=== PATIENT | male | born 1950 | race Caucasian/White ===

== ENCOUNTER 2020-12-12 12:44 | Observation (INO) ==
[2020-12-12] MEDS ORDERED: methylPREDNISolone 125 MG/2 ML VIAL IVP ONE (13:21)
[2020-12-12] MEDS ORDERED: Ipratropium/Albuterol Neb 3 ML IH ONE (13:21)
[2020-12-12] MEDS ORDERED: Albuterol 2.5 MG/3 ML NEBULIZER IH ONE (13:21)
[2020-12-12 13:31] LABS: Hematocrit 20.9 % (37.5-50.1); Hemoglobin 6.8 g/dL (12.9-16.9); Mean Corpuscular HGB Conc 32.5 g/dL (31.6-35.5); Mean Corpuscular Hemoglobin 37.2 pg (28.0-33.3); Mean Corpuscular Volume 114.2 fL (83.0-100.0); Mean Platelet Volume 10.7 fL (9.4-12.4); Platelet Count 147 K/mcL (140-400); Red Blood Count 1.83 M/mcL (4.19-5.50); Red Cell Distribution Width 16.4 % (11.5-14.5); White Blood Count 5.3 K/mcL (4.3-11.1)
[2020-12-12 13:52] LABS: BUN/Creatinine Ratio 40 (6-26); Blood Urea Nitrogen 37 mg/dL (8-23); Calcium 9.5 mg/dL (8.6-10.3); Carbon Dioxide 22 mEq/L (23-29); Chloride 105 mEq/L (98-107); Glucose 167 mg/dL (70-105); Osmolality,Calculated 296 (280-300); Potassium 4.1 mEq/L (3.5-5.1); Sodium 137 mEq/L (136-145); eGFR For African Americans > 60 (> 60); eGFR For Non-African Americans > 60 (> 60)
[2020-12-12 13:53] LABS: Troponin I < 0.03 ng/mL (< 0.04)
[2020-12-12] MEDS ORDERED: Isovue-370 500 ML BOTTLE IVP ONE (13:58)
[2020-12-12 14:03] LABS: Anisocytosis 1+ (Not Present); Lymphocytes # 0.2 K/mcL (0.6-4.6); Platelet Estimate Slight Decrease (Normal)
[2020-12-12 14:04] LABS: Poikilocytosis 1+ (Not Present)
[2020-12-12] MEDS ORDERED: 0.9 % Sodium Chloride 500 ML ONE (15:08)
[2020-12-12] MEDS ORDERED: Naloxone 0.4 MG/ML INJ IVP PRN (15:43)
[2020-12-12] MEDS ORDERED: 0.9 % Sodium Chloride 250 ML IVC SCH (15:45)
[2020-12-12] MEDS ORDERED: Azithromycin 250 MG TABLET PO SCH (15:45)
[2020-12-12] MEDS ORDERED: *HR* Dextrose 50 % in Water (Vial) 50 ML VIAL IVP PRN (15:46)
[2020-12-12] MEDS ORDERED: Dextrose Gel 15 GM/37.5 ML TUBE PO PRN ×2 (15:46)
[2020-12-12] MEDS ORDERED: D5% in Water 1,000 ML IVC PRN (15:46)
[2020-12-12] MEDS: Ipratropium/Albuterol Neb 3 ML IH SCH ×3 (16:09→23:21)
[2020-12-12] MEDS: Insulin LISPRO 300 UNITS/3 ML VIAL SUBQ SCH (17:17)
[2020-12-12] MEDS: MethylPREDNISolone 40 MG/ML VIAL IVP SCH (18:47)
[2020-12-12] MEDS: Budesonide/Formoterol 160/4.5 1 PUFF INH IH SCH (19:36)
[2020-12-13 02:25] LABS: Immature Reticulocyte % 16.3 % (11.0-38.0); Retculocyte # 0.03 M/mcL (0.05-0.10); Reticulocyte % 1.6 % (1.6-2.8)
[2020-12-13 02:45] LABS: BUN/Creatinine Ratio 39 (6-26); Blood Urea Nitrogen 37 mg/dL (8-23); Calcium 9.2 mg/dL (8.6-10.3); Carbon Dioxide 22 mEq/L (23-29); Chloride 106 mEq/L (98-107); Glucose 327 mg/dL (70-105); Osmolality,Calculated 305 (280-300); Potassium 4.3 mEq/L (3.5-5.1); Sodium 137 mEq/L (136-145); eGFR For African Americans > 60 (> 60); eGFR For Non-African Americans > 60 (> 60)
[2020-12-13] MEDS: Ipratropium/Albuterol Neb 3 ML IH SCH ×3 (03:24→11:33)
[2020-12-13] MEDS: MethylPREDNISolone 40 MG/ML VIAL IVP SCH (05:14)
[2020-12-13] MEDS: Budesonide/Formoterol 160/4.5 1 PUFF INH IH SCH (07:21)
[2020-12-13] MEDS: Insulin LISPRO 300 UNITS/3 ML VIAL SUBQ SCH ×2 (07:23→11:55)
[2020-12-13 08:43] LABS: BUN/Creatinine Ratio 36 (6-26); Blood Urea Nitrogen 35 mg/dL (8-23); Calcium 9.3 mg/dL (8.6-10.3); Carbon Dioxide 20 mEq/L (23-29); Chloride 107 mEq/L (98-107); Glucose 244 mg/dL (70-105); Osmolality,Calculated 300 (280-300); Potassium 3.7 mEq/L (3.5-5.1); Sodium 137 mEq/L (136-145); eGFR For African Americans > 60 (> 60); eGFR For Non-African Americans > 60 (> 60)
[2020-12-13] MEDS ORDERED: *HR* Rivaroxaban 10 MG TABLET PO SCH (09:00)
[2020-12-13] MEDS ORDERED: Folic Acid 1 MG TABLET PO SCH (09:00)
[2020-12-13] MEDS ORDERED: Pantoprazole 40 MG VIAL IVP SCH (09:00)
[2020-12-13] MEDS ORDERED: Furosemide 20 MG TABLET PO SCH (09:00)
[2020-12-13 10:16] LABS: Hematocrit 24.2 % (37.5-50.1); Hemoglobin 8.2 g/dL (12.9-16.9); Mean Corpuscular HGB Conc 33.9 g/dL (31.6-35.5); Mean Corpuscular Hemoglobin 35.2 pg (28.0-33.3); Mean Corpuscular Volume 103.9 fL (83.0-100.0); Mean Platelet Volume 10.8 fL (9.4-12.4); Platelet Count 120 K/mcL (140-400); Red Blood Count 2.33 M/mcL (4.19-5.50); White Blood Count 3.5 K/mcL (4.3-11.1)
[2020-12-13 10:43] VITALS: BP 117/65
[2020-12-14] MEDS ORDERED: *HR* Rivaroxaban 10 MG TABLET PO SCH (17:00)
== END 2020-12-13 13:10 | disposition home or self-care (01) ==
LOC: EMEROOARM 12:44 → 2ANU 12:44 → SUATTDRO 15:48 → 2ANU 16:46
PROVIDERS: ADMIT Internal Medicine; ATTEND Family Medicine

== ENCOUNTER 2021-01-03 15:30 | Observation (INO) ==
[2021-01-03] MEDS ORDERED: Isovue-370 500 ML BOTTLE IVP ONE (15:59)
[2021-01-03] MEDS ORDERED: 0.9 % Sodium Chloride 1,000 ML IVC ONE (15:59)
[2021-01-03 17:12] LABS: Hematocrit 22.1 % (37.5-50.1); Hemoglobin 7.3 g/dL (12.9-16.9); Immature Granulocytes % 1.1 % (0-4); Lymphocytes # 0.2 K/mcL (0.6-4.6); Mean Corpuscular Hemoglobin 36.1 pg (28.0-33.3); Mean Corpuscular Volume 109.4 fL (83.0-100.0); Mean Platelet Volume 10.3 fL (9.4-12.4); Monocytes # 0.1 K/mcL (0.0-1.3); Monocytes % 4.7 %; Neutrophils # 2.4 K/mcL (1.6-8.9); Platelet Count 105 K/mcL (140-400); Red Blood Count 2.02 M/mcL (4.19-5.50); Red Cell Distribution Width 21.2 % (11.5-14.5); Segmented Neutrophils % 86.2 %; White Blood Count 2.8 K/mcL (4.3-11.1)
[2021-01-03 17:17] LABS: INR 1.3; Prothrombin Time 15.1 Seconds (9.4-12.1)
[2021-01-03 17:20] LABS: Activated Partial Thrombo Time 23.9 Seconds (26.0-36.0)
[2021-01-03 17:30] LABS: Troponin I < 0.03 ng/mL (< 0.04)
[2021-01-03 17:43] LABS: Thyroid Stimulating Hormone 1.007 mcIU/mL (0.340-5.600)
[2021-01-03 18:25] LABS: BUN/Creatinine Ratio 41 (6-26); Blood Urea Nitrogen 34 mg/dL (8-23); Calcium 9.3 mg/dL (8.6-10.3); Carbon Dioxide 23 mEq/L (23-29); Chloride 106 mEq/L (98-107); Glucose 183 mg/dL (70-105); Osmolality,Calculated 300 (280-300); Potassium 4.1 mEq/L (3.5-5.1); Sodium 139 mEq/L (136-145); eGFR For African Americans > 60 (> 60); eGFR For Non-African Americans > 60 (> 60)
[2021-01-03] MEDS ORDERED: 0.9 % Sodium Chloride 250 ML ONE (21:52)
[2021-01-04] MEDS ORDERED: Melatonin 3 MG TABLET PO PRN (00:41)
[2021-01-04] MEDS ORDERED: Naloxone 0.4 MG/ML INJ IVP PRN (00:41)
[2021-01-04] MEDS ORDERED: Ondansetron 4 MG/2 ML VIAL IVP PRN (00:41)
[2021-01-04 04:31] LABS: Hematocrit 25.1 % (37.5-50.1); Hemoglobin 8.5 g/dL (12.9-16.9); Immature Granulocytes % 1.5 % (0-4); Mean Corpuscular HGB Conc 33.9 g/dL (31.6-35.5); Mean Corpuscular Hemoglobin 35.6 pg (28.0-33.3); Mean Platelet Volume 10.9 fL (9.4-12.4); Monocytes # 0.4 K/mcL (0.0-1.3); Monocytes % 12.2 %; Neutrophils # 2.3 K/mcL (1.6-8.9); Nucleated Red Blood Cells 0.6 /100 WBC (0); Platelet Count 119 K/mcL (140-400); Red Blood Count 2.39 M/mcL (4.19-5.50); Red Cell Distribution Width 22.1 % (11.5-14.5); Segmented Neutrophils % 67.3 %; White Blood Count 3.4 K/mcL (4.3-11.1)
[2021-01-04 04:34] LABS: Lymphocytes # 0.7 K/mcL (0.6-4.6)
[2021-01-04 04:54] LABS: Alanine Aminotransferase 11 Units/L (7-52); Albumin 3.6 g/dL (3.5-5.7); Albumin/Globulin Ratio 1.6 (1.1-2.2); Alkaline Phosphatase 64 Units/L (34-104); Aspartate Amino Transferase 11 Units/L (13-39); BUN/Creatinine Ratio 32 (6-26); Bilirubin,Total 1.8 mg/dL (0.3-1.0); Blood Urea Nitrogen 29 mg/dL (8-23); Calcium 9.2 mg/dL (8.6-10.3); Carbon Dioxide 24 mEq/L (23-29); Chloride 108 mEq/L (98-107); Globulin 2.3 g/dL (2.4-3.5); Glucose 133 mg/dL (70-105); Magnesium 2.2 mg/dL (1.6-2.6); Osmolality,Calculated 296 (280-300); Phosphorous 3.3 mg/dL (2.7-4.5); Potassium 3.8 mEq/L (3.5-5.1); Sodium 139 mEq/L (136-145); Total Protein 5.9 g/dL (6.4-8.9); eGFR For African Americans > 60 (> 60); eGFR For Non-African Americans > 60 (> 60)
[2021-01-04 05:05] LABS: Platelet Estimate Slight Decrease (Normal)
[2021-01-04] MEDS ORDERED: Dextrose Gel 15 GM/37.5 ML TUBE PO PRN ×2 (07:56)
[2021-01-04] MEDS ORDERED: *HR* Dextrose 50 % in Water (Vial) 50 ML VIAL IVP PRN (07:56)
[2021-01-04] MEDS ORDERED: D5% in Water 1,000 ML IVC PRN (07:56)
[2021-01-04] MEDS ORDERED: Nitroglycerin 0.4 MG TAB.SUBL SL PRN (07:57)
[2021-01-04] MEDS: Ipratropium/Albuterol Neb 3 ML IH SCH ×5 (09:34→23:05)
[2021-01-04] MEDS: Aspirin Enteric Coated 81 MG Tablet PO SCH (10:17)
[2021-01-04] MEDS: predniSONE 20 MG TABLET PO SCH (10:18)
[2021-01-04] MEDS: Metoprolol XL (24 HR) Succ 25 MG TAB.ER.24H PO SCH (10:18)
[2021-01-04] MEDS: levoFLOXacin 750 MG/150 ML 750 MG/150 ML BAG IVPB SCH (10:19)
[2021-01-04] MEDS: Insulin LISPRO 300 UNITS/3 ML VIAL SUBQ SCH ×2 (11:55→17:25)
[2021-01-04] MEDS: Budesonide/Formoterol 160/4.5 1 PUFF INH IH SCH (19:50)
[2021-01-04] MEDS ORDERED: Insulin DETEMIR 100 UNIT/ML X5UNITS SUBQ SCH (21:00)
[2021-01-05 02:01] LABS: Hematocrit 22.9 % (37.5-50.1); Hemoglobin 7.9 g/dL (12.9-16.9)
[2021-01-05] MEDS: Ipratropium/Albuterol Neb 3 ML IH SCH ×6 (03:20→23:13)
[2021-01-05] MEDS: Insulin LISPRO 300 UNITS/3 ML VIAL SUBQ SCH ×3 (07:13→16:39)
[2021-01-05] MEDS: Budesonide/Formoterol 160/4.5 1 PUFF INH IH SCH ×2 (07:15→19:33)
[2021-01-05] MEDS: levoFLOXacin 750 MG/150 ML 750 MG/150 ML BAG IVPB SCH (08:01)
[2021-01-05] MEDS: predniSONE 20 MG TABLET PO SCH (08:01)
[2021-01-05] MEDS: Metoprolol XL (24 HR) Succ 25 MG TAB.ER.24H PO SCH ×2 (08:02→20:56)
[2021-01-05] MEDS: Cholecalciferol (D-3) 1,000 UNIT (25MCG) TABLET PO SCH (08:02)
[2021-01-05] MEDS: Aspirin Enteric Coated 81 MG Tablet PO SCH (08:02)
[2021-01-05] MEDS: Cyanocobalamin (B-12) 1,000 MCG TABLET PO SCH (08:02)
[2021-01-05] MEDS: *HR* Heparin 5,000 UNIT/ML VIAL SQ SCH (17:43)
[2021-01-05] MEDS ORDERED: Insulin DETEMIR 100 UNIT/ML X5UNITS SUBQ SCH (21:00)
[2021-01-06] MEDS: Ipratropium/Albuterol Neb 3 ML IH SCH ×2 (03:29→07:27)
[2021-01-06 03:34] LABS: Hematocrit 25.1 % (37.5-50.1); Hemoglobin 8.3 g/dL (12.9-16.9); Lymphocytes # 0.4 K/mcL (0.6-4.6); Lymphocytes % 14.6 %; Mean Corpuscular HGB Conc 33.1 g/dL (31.6-35.5); Mean Corpuscular Hemoglobin 34.9 pg (28.0-33.3); Mean Corpuscular Volume 105.5 fL (83.0-100.0); Mean Platelet Volume 10.8 fL (9.4-12.4); Monocytes # 0.3 K/mcL (0.0-1.3); Monocytes % 13.4 %; Neutrophils # 1.7 K/mcL (1.6-8.9); Nucleated Red Blood Cells 0.8 /100 WBC (0); Platelet Count 120 K/mcL (140-400); Red Blood Count 2.38 M/mcL (4.19-5.50); Red Cell Distribution Width 21.5 % (11.5-14.5); White Blood Count 2.5 K/mcL (4.3-11.1)
[2021-01-06 03:56] LABS: BUN/Creatinine Ratio 26 (6-26); Blood Urea Nitrogen 25 mg/dL (8-23); Calcium 9.3 mg/dL (8.6-10.3); Carbon Dioxide 23 mEq/L (23-29); Chloride 106 mEq/L (98-107); Glucose 172 mg/dL (70-105); Osmolality,Calculated 292 (280-300); Phosphorous 2.8 mg/dL (2.7-4.5); Potassium 4.1 mEq/L (3.5-5.1); Sodium 137 mEq/L (136-145); eGFR For African Americans > 60 (> 60); eGFR For Non-African Americans > 60 (> 60)
[2021-01-06] MEDS: *HR* Heparin 5,000 UNIT/ML VIAL SQ SCH (05:31)
[2021-01-06] MEDS: Budesonide/Formoterol 160/4.5 1 PUFF INH IH SCH (07:27)
[2021-01-06 07:50] VITALS: BP 125/74
[2021-01-06] MEDS: Insulin LISPRO 300 UNITS/3 ML VIAL SUBQ SCH (07:52)
[2021-01-06] MEDS: Cholecalciferol (D-3) 1,000 UNIT (25MCG) TABLET PO SCH (07:52)
[2021-01-06] MEDS: Metoprolol XL (24 HR) Succ 25 MG TAB.ER.24H PO SCH (07:53)
[2021-01-06] MEDS: Aspirin Enteric Coated 81 MG Tablet PO SCH (07:54)
[2021-01-06] MEDS: Cyanocobalamin (B-12) 1,000 MCG TABLET PO SCH (07:54)
[2021-01-06] MEDS ORDERED: levoFLOXacin 750 MG TABLET PO SCH (09:00)
[2021-01-06] MEDS ORDERED: predniSONE 20 MG TABLET PO SCH (09:00)
[2021-01-06] MEDS ORDERED: lisinopriL 5 MG TABLET PO SCH (09:00)
== END 2021-01-06 10:44 | disposition left against medical advice (07) ==
LOC: EMEROOARM 15:30 → 2NENU 15:30 → SUATTDRO 20:42 → 2NENU 22:30
PROVIDERS: ADMIT Internal Medicine; ATTEND Internal Medicine

== ENCOUNTER 2021-01-30 08:43 | Observation (INO) ==
[2021-01-30] MEDS ORDERED: Nitroglycerin 0.4 MG TAB.SUBL SL PRN (08:51)
[2021-01-30] MEDS ORDERED: Aspirin 81 MG TAB.CHEW PO ONE (08:51)
[2021-01-30] MEDS ORDERED: 0.9 % Sodium Chloride 500 ML IVC STA (09:04)
[2021-01-30] MEDS ORDERED: Morphine Sulfate 2 MG/ML SYRINGE IVP STA (09:04)
[2021-01-30 09:08] LABS: Hematocrit 28.4 % (37.5-50.1); Hemoglobin 9.2 g/dL (12.9-16.9); Immature Platelets 5.8 % (1.1-6.1); Mean Corpuscular HGB Conc 32.4 g/dL (31.6-35.5); Mean Corpuscular Hemoglobin 36.8 pg (28.0-33.3); Mean Corpuscular Volume 113.6 fL (83.0-100.0); Mean Platelet Volume 10.3 fL (9.4-12.4); Monocytes # 0.3 K/mcL (0.0-1.3); Neutrophils # 2.2 K/mcL (1.6-8.9); Platelet Count 111 K/mcL (140-400); Red Cell Distribution Width 21.7 % (11.5-14.5); White Blood Count 3.2 K/mcL (4.3-11.1)
[2021-01-30 09:28] LABS: BUN/Creatinine Ratio 33 (6-26); Blood Urea Nitrogen 34 mg/dL (8-23); Calcium 9.9 mg/dL (8.6-10.3); Carbon Dioxide 28 mEq/L (23-29); Chloride 105 mEq/L (98-107); Glucose 98 mg/dL (70-105); Osmolality,Calculated 300 (280-300); Sodium 141 mEq/L (136-145); Troponin I 0.03 ng/mL (< 0.04); eGFR For African Americans > 60 (> 60); eGFR For Non-African Americans > 60 (> 60)
[2021-01-30 09:46] LABS: Lymphocytes # 0.7 K/mcL (0.6-4.6); Platelet Estimate Decreased (Normal); Reactive Lymphocytes Present (Not Present)
[2021-01-30 09:49] LABS: Anisocytosis 2+ (Not Present)
[2021-01-30] MEDS ORDERED: Naloxone 0.4 MG/ML INJ IVP PRN (10:36)
[2021-01-30] MEDS ORDERED: *HR* Dextrose 50 % in Water (Vial) 50 ML VIAL IVP PRN (10:37)
[2021-01-30] MEDS ORDERED: D5% in Water 1,000 ML IVC PRN (10:37)
[2021-01-30] MEDS ORDERED: Dextrose Gel 15 GM/37.5 ML TUBE PO PRN ×2 (10:37)
[2021-01-30 10:42] LABS: Adenovirus Not Detected (Not Detect); Bordetella Pertussis Not Detected (Not Detect); Chlamydophila pneumoniae Not Detected (Not Detect); Coronavirus 229E Not Detected (Not Detect); Coronavirus HKU1 Not Detected (Not Detect); Coronavirus NL63 Not Detected (Not Detect); Coronavirus OC43 Not Detected (Not Detect); Human Metapneumovirus Not Detected (Not Detect); Human Rhinovirus/Enterovirus Not Detected (Not Detect); Influenza A Subtype 2009 H1 Not Detected (Not Detect); Influenza B Not Detected (Not Detect); Mycoplasma pneumoniae Not Detected (Not Detect); Parainfluenza Virus 1 Not Detected (Not Detect); Parainfluenza Virus 2 Not Detected (Not Detect); Parainfluenza Virus 3 Not Detected (Not Detect); Parainfluenza Virus 4 Not Detected (Not Detect); Respiratory Syncytial Virus Not Detected (Not Detect); SARS-CoV-2 Not Detected (Not Detect)
[2021-01-30] MEDS: Insulin LISPRO 300 UNITS/3 ML VIAL SUBQ SCH ×2 (12:34→17:40)
[2021-01-30] MEDS ORDERED: Perflutren Lipid Microsphere 1.3 ML in 0.9 % Sodium Chloride 8.7 ML IVP PRN (14:03)
[2021-01-30] MEDS ORDERED: Furosemide 20 MG/2 ML VIAL IVP ONE (14:52)
[2021-01-30] MEDS: *HR* Heparin 5,000 UNIT/ML VIAL SQ SCH (16:11)
[2021-01-30] MEDS ORDERED: Insulin LISPRO 300 UNITS/3 ML VIAL SUBQ SCH (21:00)
[2021-01-31] MEDS: *HR* Heparin 5,000 UNIT/ML VIAL SQ SCH ×2 (05:11→16:59)
[2021-01-31 05:37] LABS: Eosinophils % 0.3 %; Immature Granulocytes % 1.5 % (0-4); Mean Corpuscular HGB Conc 32.9 g/dL (31.6-35.5); Monocytes % 9.4 %; Red Cell Distribution Width 22.2 % (11.5-14.5)
[2021-01-31 05:38] LABS: Hematocrit 21.6 % (37.5-50.1); Hemoglobin 7.1 g/dL (12.9-16.9); Immature Platelets 4.2 % (1.1-6.1); Lymphocytes # 0.7 K/mcL (0.6-4.6); Lymphocytes % 21.6 %; Mean Corpuscular Volume 112.5 fL (83.0-100.0); Mean Platelet Volume 10.8 fL (9.4-12.4); Monocytes # 0.3 K/mcL (0.0-1.3); Neutrophils # 2.2 K/mcL (1.6-8.9); Red Blood Count 1.92 M/mcL (4.19-5.50); Segmented Neutrophils % 67.2 %; White Blood Count 3.3 K/mcL (4.3-11.1)
[2021-01-31 05:43] LABS: Platelet Count 98 K/mcL (140-400)
[2021-01-31 05:59] LABS: Chol/HDL Ratio 2.6 (0-4.9)
[2021-01-31 06:07] LABS: Anisocytosis 2+ (Not Present); Macrocytosis Present (Not Present); Platelet Estimate Decreased (Normal)
[2021-01-31] MEDS ORDERED: Regadenoson 0.4 MG/5 ML SYRINGE IVP ONE (06:27)
[2021-01-31 08:08] LABS: Estimated Average Glucose 126 mg/dl
[2021-01-31] MEDS: Insulin LISPRO 300 UNITS/3 ML VIAL SUBQ SCH ×3 (08:24→16:58)
[2021-01-31] MEDS ORDERED: Ipratropium/Albuterol Neb 3 ML IH PRN (08:36)
[2021-01-31] MEDS ORDERED: Furosemide 20 MG TABLET PO SCH (09:00)
[2021-01-31] MEDS ORDERED: Cyanocobalamin (B-12) 1,000 MCG TABLET PO SCH (09:00)
[2021-01-31] MEDS ORDERED: Metoprolol XL (24 HR) Succ 25 MG TAB.ER.24H PO SCH (09:00)
[2021-01-31] MEDS ORDERED: Aspirin Enteric Coated 81 MG Tablet PO SCH (09:00)
[2021-01-31 09:58] LABS: Hemoglobin 7.6 g/dL (12.9-16.9)
[2021-01-31 10:00] LABS: Hematocrit 22.9 % (37.5-50.1)
[2021-01-31] MEDS ORDERED: Tiotropium 10 INH DOSE IH SCH (10:00)
[2021-01-31] MEDS ORDERED: Budesonide/Formoterol 160/4.5 1 PUFF INH IH SCH (10:00)
[2021-01-31 10:19] LABS: % Iron Saturation 29 % (20-55); Iron 57 mcg/dL (65-175); Transferrin 140 mg/dL (203-362)
[2021-01-31 10:38] LABS: Ferritin 301 ng/mL (20-250)
[2021-01-31 10:43] LABS: Folate 18.1 ng/mL (3.0-16.0)
[2021-01-31] MEDS ORDERED: Tiotropium 10 INH DOSE IH ONE (10:54)
[2021-01-31 18:30] VITALS: BP 112/62
[2021-01-31 19:08] LABS: Hematocrit 24.2 % (37.5-50.1); Hemoglobin 8.1 g/dL (12.9-16.9)
== END 2021-01-31 19:36 | disposition home or self-care (01) ==
LOC: 3BNU 08:43 → EMEROOARM 08:43 → SUATTDRO 11:04 → 3BNU 11:54
PROVIDERS: ADMIT Internal Medicine; ATTEND Internal Medicine

== ENCOUNTER 2021-07-23 11:12 | Inpatient (IN) ==
[2021-07-23 12:36] LABS: Basophils % 0.3 %; Eosinophils % 0.3 %; Hemoglobin 6.9 g/dL (12.9-16.9); Immature Granulocytes % 1.5 % (0-4)
[2021-07-23 12:37] LABS: Hematocrit 21.5 % (37.5-50.1); Immature Platelets 9.4 % (1.1-6.1); Lymphocytes # 0.4 K/mcL (0.6-4.6); Mean Corpuscular HGB Conc 32.1 g/dL (31.6-35.5); Mean Corpuscular Hemoglobin 33.2 pg (28.0-33.3); Mean Corpuscular Volume 103.4 fL (83.0-100.0); Mean Platelet Volume 12.4 fL (9.4-12.4); Monocytes # 0.3 K/mcL (0.0-1.3); Monocytes % 9.8 %; Neutrophils # 2.6 K/mcL (1.6-8.9); Nucleated Red Blood Cells 0.6 /100 WBC (0); Red Blood Count 2.08 M/mcL (4.19-5.50); Red Cell Distribution Width 22.1 % (11.5-14.5); Segmented Neutrophils % 77.1 %; White Blood Count 3.4 K/mcL (4.3-11.1)
[2021-07-23 12:37] LABS: INR 1.2; Prothrombin Time 13.4 Seconds (9.4-12.1)
[2021-07-23 12:39] LABS: Activated Partial Thrombo Time 28.1 Seconds (26.0-36.0)
[2021-07-23 12:40] LABS: Platelet Count 63 K/mcL (140-400)
[2021-07-23 12:55] LABS: ABG Base Excess 3 mEq/L (-2 to 3); ABG HCO3 28 mEq/L (21-27); ABG Oxygen Saturation 99 % (95-98); ABG PCO2 44 mmHg (35-45); ABG PH 7.41 pH Units (7.32-7.45); ABG PO2 133 mmHg (85-104); ABG TCO2 29 mEq/L (20-26)
[2021-07-23 13:02] LABS: Alanine Aminotransferase 6 Units/L (7-52); Albumin 3.5 g/dL (3.5-5.7); Albumin/Globulin Ratio 1.3 (1.1-2.2); Alkaline Phosphatase 75 Units/L (34-104); Aspartate Amino Transferase 13 Units/L (13-39); BUN/Creatinine Ratio 32 (6-26); Bilirubin,Direct 0.5 mg/dL (0.0-0.2); Bilirubin,Indirect 1.2 mg/dL (0.0-1.0); Bilirubin,Total 1.7 mg/dL (0.3-1.0); Blood Urea Nitrogen 37 mg/dL (8-23); Calcium 9.1 mg/dL (8.6-10.3); Carbon Dioxide 27 mEq/L (23-29); Chloride 105 mEq/L (98-107); Globulin 2.7 g/dL (2.4-3.5); Glucose 107 mg/dL (70-105); Osmolality,Calculated 299 (280-300); Potassium 3.8 mEq/L (3.5-5.1); Sodium 140 mEq/L (136-145); Total Protein 6.2 g/dL (6.4-8.9); Troponin I 0.05 ng/mL (< 0.04); eGFR For African Americans > 60 (> 60); eGFR For Non-African Americans > 60 (> 60)
[2021-07-23 13:18] LABS: Influenza A PCR Negative (Negative); Influenza B PCR Negative (Negative); Resp. Syncytial Virus PCR Negative (Negative)
[2021-07-23 13:36] LABS: SARS-CoV-2 by PCR (In House) Negative (Negative)
[2021-07-23] MEDS ORDERED: Isovue-370 500 ML BOTTLE IVP ONE (14:10)
[2021-07-23] MEDS ORDERED: Amiodarone Premix 150 MG/100 ML BAG IVPB ONE (16:06)
[2021-07-23] MEDS ORDERED: Amiodarone Premix 360 MG/200 ML BAG IVC ONE (16:09)
[2021-07-23] MEDS ORDERED: Furosemide 60 MG in 0.9 % Sodium Chloride 50 ML IV ONE (16:17)
[2021-07-23] MEDS ORDERED: 0.9 % Sodium Chloride 250 ML IVC SCH (17:15)
[2021-07-23] MEDS: Furosemide 40 MG/4 ML VIAL IVP ONE ×2 (17:52→21:43)
[2021-07-23 19:24] LABS: Thyroid Stimulating Hormone 3.331 mcIU/mL (0.340-5.600)
[2021-07-23 19:32] LABS: Magnesium 2.1 mg/dL (1.6-2.6)
[2021-07-23] MEDS ORDERED: Amiodarone Premix 360 MG/200 ML BAG IVC SCH (22:09)
[2021-07-24 01:03] LABS: Basophils % 0.3 %; Hemoglobin 7.3 g/dL (12.9-16.9); Red Cell Distribution Width 21.2 % (11.5-14.5)
[2021-07-24 01:05] LABS: Hematocrit 22.9 % (37.5-50.1); Immature Granulocytes % 1.6 % (0-4); Immature Platelets 9.7 % (1.1-6.1); Lymphocytes # 0.4 K/mcL (0.6-4.6); Lymphocytes % 13.1 %; Mean Corpuscular HGB Conc 31.9 g/dL (31.6-35.5); Mean Corpuscular Hemoglobin 32.4 pg (28.0-33.3); Mean Corpuscular Volume 101.8 fL (83.0-100.0); Mean Platelet Volume 11.7 fL (9.4-12.4); Monocytes # 0.3 K/mcL (0.0-1.3); Monocytes % 9.7 %; Neutrophils # 2.4 K/mcL (1.6-8.9); Red Blood Count 2.25 M/mcL (4.19-5.50); Segmented Neutrophils % 75.3 %; White Blood Count 3.2 K/mcL (4.3-11.1)
[2021-07-24] MEDS ORDERED: 0.9 % Sodium Chloride 250 ML IVC ONE (01:10)
[2021-07-24 01:12] LABS: INR 1.3; Prothrombin Time 14.5 Seconds (9.4-12.1)
[2021-07-24 01:14] LABS: Platelet Count 62 K/mcL (140-400)
[2021-07-24 01:17] LABS: Alanine Aminotransferase 6 Units/L (7-52); Albumin 3.2 g/dL (3.5-5.7); Albumin/Globulin Ratio 1.3 (1.1-2.2); Alkaline Phosphatase 68 Units/L (34-104); Aspartate Amino Transferase 11 Units/L (13-39); BUN/Creatinine Ratio 31 (6-26); Bilirubin,Total 1.4 mg/dL (0.3-1.0); Blood Urea Nitrogen 38 mg/dL (8-23); Calcium 8.9 mg/dL (8.6-10.3); Carbon Dioxide 27 mEq/L (23-29); Chloride 105 mEq/L (98-107); Globulin 2.5 g/dL (2.4-3.5); Glucose 164 mg/dL (70-105); Magnesium 2.1 mg/dL (1.6-2.6); Osmolality,Calculated 301 (280-300); Potassium 3.5 mEq/L (3.5-5.1); Sodium 139 mEq/L (136-145); Total Protein 5.7 g/dL (6.4-8.9); eGFR For African Americans > 60 (> 60); eGFR For Non-African Americans 57 (> 60)
[2021-07-24 01:31] LABS: Troponin I 0.06 ng/mL (< 0.04)
[2021-07-24] MEDS ORDERED: MethylPREDNISolone 40 MG/ML VIAL IVP ONE (06:00)
[2021-07-24 09:05] LABS: Hematocrit 29.9 % (37.5-50.1); Hemoglobin 9.7 g/dL (12.9-16.9)
[2021-07-24] MEDS ORDERED: *HR* Amiodarone 200 MG TABLET PO SCH (10:00)
[2021-07-24] MEDS: *HR* Amiodarone 200 MG TABLET PO SCH (20:24)
[2021-07-24] MEDS: Budesonide/Formoterol 160/4.5 1 PUFF INH IH SCH (21:18)
[2021-07-25] MEDS: *HR* Amiodarone 200 MG TABLET PO SCH ×3 (03:08→20:30)
[2021-07-25 07:03] LABS: Basophils % 0.2 %; Eosinophils % 0.2 %; Hematocrit 26.6 % (37.5-50.1); Hemoglobin 8.5 g/dL (12.9-16.9); Immature Granulocytes % 0.9 % (0-4); Immature Platelets 11.8 % (1.1-6.1); Lymphocytes # 0.8 K/mcL (0.6-4.6); Lymphocytes % 17.2 %; Mean Corpuscular Hemoglobin 32.1 pg (28.0-33.3); Mean Corpuscular Volume 100.4 fL (83.0-100.0); Mean Platelet Volume 12.7 fL (9.4-12.4); Monocytes # 0.4 K/mcL (0.0-1.3); Monocytes % 9.5 %; Red Blood Count 2.65 M/mcL (4.19-5.50); Red Cell Distribution Width 21.5 % (11.5-14.5); White Blood Count 4.5 K/mcL (4.3-11.1)
[2021-07-25 07:05] LABS: Neutrophils # 3.2 K/mcL (1.6-8.9); Platelet Count 61 K/mcL (140-400)
[2021-07-25] MEDS: Tiotropium 10 INH DOSE IH SCH (07:18)
[2021-07-25 07:21] LABS: Albumin 3.3 g/dL (3.5-5.7); Albumin/Globulin Ratio 1.3 (1.1-2.2); Bilirubin,Total 1.3 mg/dL (0.3-1.0); Globulin 2.5 g/dL (2.4-3.5); Magnesium 2.5 mg/dL (1.6-2.6); Potassium 4.4 mEq/L (3.5-5.1); Total Protein 5.8 g/dL (6.4-8.9)
[2021-07-25] MEDS: Cyanocobalamin (B-12) 1,000 MCG TABLET PO SCH (07:53)
[2021-07-25] MEDS: Budesonide/Formoterol 160/4.5 1 PUFF INH IH SCH ×2 (08:23→21:39)
[2021-07-25] MEDS ORDERED: 0.9 % Sodium Chloride 500 ML IVC PRN (11:09)
[2021-07-25] MEDS: Aspirin Enteric Coated 81 MG Tablet PO SCH (11:10)
[2021-07-25] MEDS: Albumin 25% 25gram/100mL 25 GM/100 ML IV.SOLN IVC SCH ×4 (11:30→17:50)
[2021-07-25] MEDS: Fluticasone Propionate Nasal 50 MCG/SPRAY BOTTLE NS SCH (23:16)
[2021-07-26] MEDS: *HR* Amiodarone 200 MG TABLET PO SCH ×3 (03:35→20:40)
[2021-07-26 07:48] LABS: Basophils % 0.2 %; Calcium 8.8 mg/dL (8.6-10.3); Immature Granulocytes % 0.7 % (0-4); Magnesium 2.4 mg/dL (1.6-2.6); Potassium 4.1 mEq/L (3.5-5.1)
[2021-07-26 07:50] LABS: Eosinophils % 0.4 %; Hematocrit 25.9 % (37.5-50.1); Hemoglobin 8.1 g/dL (12.9-16.9); Immature Platelets 13.5 % (1.1-6.1); Lymphocytes % 16.6 %; Mean Corpuscular HGB Conc 31.3 g/dL (31.6-35.5); Mean Corpuscular Hemoglobin 31.5 pg (28.0-33.3); Mean Corpuscular Volume 100.8 fL (83.0-100.0); Mean Platelet Volume 11.6 fL (9.4-12.4); Monocytes # 0.4 K/mcL (0.0-1.3); Monocytes % 9.2 %; Neutrophils # 3.3 K/mcL (1.6-8.9); Red Blood Count 2.57 M/mcL (4.19-5.50); Red Cell Distribution Width 21.2 % (11.5-14.5); Segmented Neutrophils % 72.9 %; White Blood Count 4.5 K/mcL (4.3-11.1)
[2021-07-26 08:02] LABS: Lymphocytes # 0.8 K/mcL (0.6-4.6); Platelet Count 48 K/mcL (140-400)
[2021-07-26] MEDS: Budesonide/Formoterol 160/4.5 1 PUFF INH IH SCH ×2 (08:04→21:00)
[2021-07-26] MEDS: Tiotropium 10 INH DOSE IH SCH (08:04)
[2021-07-26] MEDS: Aspirin Enteric Coated 81 MG Tablet PO SCH (08:07)
[2021-07-26] MEDS: Fluticasone Propionate Nasal 50 MCG/SPRAY BOTTLE NS SCH (08:07)
[2021-07-26] MEDS: Cyanocobalamin (B-12) 1,000 MCG TABLET PO SCH (08:07)
[2021-07-26 08:12] LABS: Platelet Estimate Decreased (Normal)
[2021-07-26] MEDS ORDERED: Metoprolol XL (24 HR) Succ 25 MG TAB.ER.24H PO SCH (11:00)
[2021-07-26] MEDS ORDERED: 0.9 % Sodium Chloride 250 ML IVC ONE (12:36)
[2021-07-26 16:34] VITALS: TEMP 98.4
[2021-07-26] MEDS ORDERED: Melatonin 3 MG TABLET PO PRN (22:54)
[2021-07-27 07:07] VITALS: BP 103/60; PULSE 60; O2SAT 95
[2021-07-27] MEDS ORDERED: *HR* Amiodarone 200 MG TABLET PO SCH (09:00)
[2021-07-27] MEDS ORDERED: Metoprolol XL (24 HR) Succ 25 MG TAB.ER.24H PO SCH (09:00)
[2021-07-27] MEDS: Budesonide/Formoterol 160/4.5 1 PUFF INH IH SCH (09:19)
[2021-07-27] MEDS: Tiotropium 10 INH DOSE IH SCH (09:19)
[2021-07-27] MEDS: Aspirin Enteric Coated 81 MG Tablet PO SCH (10:12)
[2021-07-27] MEDS: Cyanocobalamin (B-12) 1,000 MCG TABLET PO SCH (10:12)
[2021-07-27] MEDS: Fluticasone Propionate Nasal 50 MCG/SPRAY BOTTLE NS SCH (10:13)
[2021-07-27 11:46] LABS: Hemoglobin 7.6 g/dL (12.9-16.9)
[2021-07-27 11:49] LABS: Eosinophils % 0.6 %; Hematocrit 24.1 % (37.5-50.1); Immature Granulocytes % 0.9 % (0-4); Immature Platelets 11.8 % (1.1-6.1); Lymphocytes # 0.5 K/mcL (0.6-4.6); Lymphocytes % 14.3 %; Mean Corpuscular HGB Conc 31.5 g/dL (31.6-35.5); Mean Corpuscular Hemoglobin 31.9 pg (28.0-33.3); Mean Corpuscular Volume 101.3 fL (83.0-100.0); Mean Platelet Volume 11.8 fL (9.4-12.4); Monocytes # 0.4 K/mcL (0.0-1.3); Monocytes % 11.4 %; Neutrophils # 2.6 K/mcL (1.6-8.9); Red Blood Count 2.38 M/mcL (4.19-5.50); Red Cell Distribution Width 20.4 % (11.5-14.5); Segmented Neutrophils % 72.8 %; White Blood Count 3.5 K/mcL (4.3-11.1)
[2021-07-27 11:58] LABS: Platelet Count 38 K/mcL (140-400)
[2021-07-27 12:07] LABS: Calcium 8.8 mg/dL (8.6-10.3); Magnesium 2.3 mg/dL (1.6-2.6); Phosphorous 2.9 mg/dL (2.7-4.5)
== END 2021-07-27 10:53 | disposition home or self-care (01) | DRG 308 ==
LOC: 2NENU 11:12 → EMEROOARM 11:12 → 2NENU 22:17
PROVIDERS: ADMIT Internal Medicine; ATTEND Internal Medicine

== ENCOUNTER 2021-09-03 17:35 | Inpatient (IN) ==
[2021-09-03] MEDS ORDERED: Ipratropium/Albuterol Neb 3 ML IH ONE (18:29)
[2021-09-03] MEDS ORDERED: diazePAM 10 MG/2 ML SYRINGE ONE (21:25)
[2021-09-03 22:13] LABS: Eosinophils % 0.5 %
[2021-09-03 22:15] LABS: Immature Granulocytes % 1.6 % (0-4); Immature Platelets 9.5 % (1.1-6.1); Lymphocytes # 0.5 K/mcL (0.6-4.6); Lymphocytes % 25.5 %; Mean Corpuscular HGB Conc 31.5 g/dL (31.6-35.5); Mean Corpuscular Hemoglobin 32.6 pg (28.0-33.3); Mean Corpuscular Volume 103.6 fL (83.0-100.0); Mean Platelet Volume 11.6 fL (9.4-12.4); Monocytes # 0.2 K/mcL (0.0-1.3); Monocytes % 11.2 %; Neutrophils # 1.2 K/mcL (1.6-8.9); Nucleated Red Blood Cells 1.1 /100 WBC (0); Red Blood Count 1.38 M/mcL (4.19-5.50); Red Cell Distribution Width 23.5 % (11.5-14.5); Segmented Neutrophils % 61.2 %; White Blood Count 1.9 K/mcL (4.3-11.1)
[2021-09-03 22:35] LABS: Albumin 3.1 g/dL (3.5-5.7); Albumin/Globulin Ratio 1.1 (1.1-2.2); Bilirubin,Total 1.3 mg/dL (0.3-1.0); Calcium 8.8 mg/dL (8.6-10.3); Globulin 2.7 g/dL (2.4-3.5); Potassium 4.1 mEq/L (3.5-5.1); Total Protein 5.8 g/dL (6.4-8.9)
[2021-09-03 22:36] LABS: Troponin I 0.03 ng/mL (< 0.04)
[2021-09-03 22:48] LABS: Hemoglobin 4.5 g/dL (12.9-16.9)
[2021-09-03 22:49] LABS: Platelet Count 65 K/mcL (140-400)
[2021-09-03 22:51] LABS: Hematocrit 14.3 % (37.5-50.1)
[2021-09-03] MEDS ORDERED: Naloxone 0.4 MG/ML INJ IVP PRN (23:48)
[2021-09-03] MEDS ORDERED: Ondansetron ODT 4 MG TAB.RAPDIS SL PRN (23:48)
[2021-09-04] MEDS ORDERED: 0.9 % Sodium Chloride 250 ML ONE ×2 (00:27→05:15)
[2021-09-04] MEDS ORDERED: Ipratropium/Albuterol Neb 3 ML IH PRN (02:11)
[2021-09-04] MEDS ORDERED: *HR* Dextrose 50 % in Water (Syg) 50 ML SYRINGE IVP PRN (02:17)
[2021-09-04] MEDS ORDERED: Dextrose Gel 15 GM/37.5 ML TUBE PO PRN ×2 (02:17)
[2021-09-04] MEDS ORDERED: D5% in Water 1,000 ML IVC PRN (02:17)
[2021-09-04 05:02] LABS: Basophils % 0.4 %; White Blood Count 2.6 K/mcL (4.3-11.1)
[2021-09-04 05:04] LABS: Eosinophils % 0.4 %; Hematocrit 16.9 % (37.5-50.1); Immature Granulocytes % 1.6 % (0-4); Immature Platelets 9.8 % (1.1-6.1); Lymphocytes # 0.4 K/mcL (0.6-4.6); Lymphocytes % 15.7 %; Mean Corpuscular Hemoglobin 32.1 pg (28.0-33.3); Mean Corpuscular Volume 100.6 fL (83.0-100.0); Mean Platelet Volume 12.1 fL (9.4-12.4); Monocytes # 0.3 K/mcL (0.0-1.3); Monocytes % 12.2 %; Neutrophils # 1.8 K/mcL (1.6-8.9); Red Blood Count 1.68 M/mcL (4.19-5.50); Red Cell Distribution Width 22.1 % (11.5-14.5); Segmented Neutrophils % 69.7 %
[2021-09-04 05:06] LABS: Platelet Count 61 K/mcL (140-400)
[2021-09-04 05:10] LABS: Hemoglobin 5.4 g/dL (12.9-16.9)
[2021-09-04 05:26] LABS: INR 1.3; Prothrombin Time 14.4 Seconds (9.4-12.1)
[2021-09-04 05:28] LABS: Activated Partial Thrombo Time 27.8 Seconds (26.0-36.0)
[2021-09-04 05:47] LABS: Albumin 3.1 g/dL (3.5-5.7); Albumin/Globulin Ratio 1.2 (1.1-2.2); Bilirubin,Total 1.2 mg/dL (0.3-1.0); Calcium 8.6 mg/dL (8.6-10.3); Globulin 2.6 g/dL (2.4-3.5); Magnesium 1.9 mg/dL (1.6-2.6); Phosphorous 5.2 mg/dL (2.7-4.5); Potassium 4.1 mEq/L (3.5-5.1); Total Protein 5.7 g/dL (6.4-8.9)
[2021-09-04] MEDS: Insulin LISPRO 300 UNITS/3 ML VIAL SUBQ SCH ×3 (08:11→17:08)
[2021-09-04] MEDS ORDERED: Furosemide 40 MG/4 ML VIAL IVP ONE (09:00)
[2021-09-04] MEDS: Pantoprazole 40 MG VIAL IVP SCH ×2 (09:49→17:08)
[2021-09-04 10:08] LABS: Hematocrit 20.4 % (37.5-50.1)
[2021-09-04 10:09] LABS: Hemoglobin 6.6 g/dL (12.9-16.9)
[2021-09-04 13:24] LABS: Calcium 8.7 mg/dL (8.6-10.3); Potassium 4.2 mEq/L (3.5-5.1)
[2021-09-04] MEDS: Ipratropium/Albuterol Neb 3 ML IH SCH ×2 (16:28→20:32)
[2021-09-04 17:43] LABS: Hematocrit 23.5 % (37.5-50.1); Hemoglobin 7.6 g/dL (12.9-16.9)
[2021-09-04] MEDS: *HR* Amiodarone 200 MG TABLET PO SCH (21:35)
[2021-09-05] MEDS: Ipratropium/Albuterol Neb 3 ML IH SCH ×4 (04:07→21:18)
[2021-09-05] MEDS: Pantoprazole 40 MG VIAL IVP SCH ×2 (05:37→18:14)
[2021-09-05 06:07] LABS: Basophils % 0.4 %; Eosinophils % 0.7 %; Hemoglobin 6.7 g/dL (12.9-16.9)
[2021-09-05 06:09] LABS: Hematocrit 20.7 % (37.5-50.1); Immature Granulocytes % 1.1 % (0-4); Immature Platelets 11.2 % (1.1-6.1); Lymphocytes # 0.7 K/mcL (0.6-4.6); Lymphocytes % 24.5 %; Mean Corpuscular HGB Conc 32.4 g/dL (31.6-35.5); Mean Corpuscular Hemoglobin 31.9 pg (28.0-33.3); Mean Corpuscular Volume 98.6 fL (83.0-100.0); Monocytes # 0.3 K/mcL (0.0-1.3); Monocytes % 10.4 %; Neutrophils # 1.8 K/mcL (1.6-8.9); Red Cell Distribution Width 20.9 % (11.5-14.5); Segmented Neutrophils % 62.9 %; White Blood Count 2.8 K/mcL (4.3-11.1)
[2021-09-05 06:14] LABS: Platelet Count 57 K/mcL (140-400)
[2021-09-05] MEDS: Insulin LISPRO 300 UNITS/3 ML VIAL SUBQ SCH ×3 (08:12→18:09)
[2021-09-05] MEDS ORDERED: Iron Polysaccharide Complex 150 MG CAPSULE PO SCH (09:00)
[2021-09-05] MEDS: Patient Taking Own Medication 1 EACH PO SCH (09:21)
[2021-09-05] MEDS: *HR* Amiodarone 200 MG TABLET PO SCH ×2 (09:21→20:59)
[2021-09-05] MEDS: Cyanocobalamin (B-12) 1,000 MCG TABLET PO SCH (09:21)
[2021-09-05] MEDS: Metoprolol XL (24 HR) Succ 25 MG TAB.ER.24H PO SCH (09:21)
[2021-09-05 10:06] LABS: Calcium 8.5 mg/dL (8.6-10.3); Potassium 3.7 mEq/L (3.5-5.1)
[2021-09-05] MEDS ORDERED: 0.9 % Sodium Chloride 1,000 ML ONE (12:06)
[2021-09-05] MEDS ORDERED: Perflutren Lipid Microsphere 1.3 ML in 0.9 % Sodium Chloride 8.7 ML IVP PRN (16:07)
[2021-09-05] MEDS ORDERED: Albumin 25% 25gram/100mL 25 GM/100 ML IV.SOLN IVPB ONE (21:27)
[2021-09-05] MEDS ORDERED: Saline Nasal Spray 44 ML BOTTLE NS PRN (22:04)
[2021-09-05 22:40] LABS: Hematocrit 22.6 % (37.5-50.1); Hemoglobin 7.4 g/dL (12.9-16.9)
[2021-09-06] MEDS ORDERED: Albumin 25% 25gram/100mL 25 GM/100 ML IV.SOLN IVPB ONE (00:04)
[2021-09-06] MEDS: Ipratropium/Albuterol Neb 3 ML IH SCH ×4 (04:08→20:41)
[2021-09-06] MEDS: Pantoprazole 40 MG VIAL IVP SCH ×2 (05:51→16:46)
[2021-09-06 06:42] LABS: Basophils % 0.3 %; Immature Granulocytes % 0.8 % (0-4)
[2021-09-06 06:44] LABS: Hematocrit 21.6 % (37.5-50.1); Hemoglobin 7.2 g/dL (12.9-16.9); Immature Platelets 10.8 % (1.1-6.1); Lymphocytes # 0.7 K/mcL (0.6-4.6); Lymphocytes % 16.5 %; Mean Corpuscular HGB Conc 33.3 g/dL (31.6-35.5); Mean Corpuscular Hemoglobin 32.4 pg (28.0-33.3); Mean Corpuscular Volume 97.3 fL (83.0-100.0); Mean Platelet Volume 12.3 fL (9.4-12.4); Monocytes # 0.3 K/mcL (0.0-1.3); Monocytes % 6.8 %; Red Blood Count 2.22 M/mcL (4.19-5.50); Red Cell Distribution Width 19.7 % (11.5-14.5); Segmented Neutrophils % 74.6 %
[2021-09-06 06:48] LABS: Platelet Count 44 K/mcL (140-400)
[2021-09-06 06:56] LABS: Albumin 3.4 g/dL (3.5-5.7); Albumin/Globulin Ratio 1.3 (1.1-2.2); Bilirubin,Total 1.5 mg/dL (0.3-1.0); Calcium 8.5 mg/dL (8.6-10.3); Globulin 2.7 g/dL (2.4-3.5); Potassium 3.8 mEq/L (3.5-5.1); Total Protein 6.1 g/dL (6.4-8.9)
[2021-09-06] MEDS: Insulin LISPRO 300 UNITS/3 ML VIAL SUBQ SCH ×3 (08:05→20:42)
[2021-09-06 09:34] LABS: Thyroid Stimulating Hormone 18.663 mcIU/mL (0.340-5.600)
[2021-09-06 09:35] LABS: Triiodothyronine (T3) Free 1.66 pg/mL (2.50-3.90)
[2021-09-06] MEDS: Patient Taking Own Medication 1 EACH PO SCH (09:38)
[2021-09-06] MEDS: *HR* Amiodarone 200 MG TABLET PO SCH ×2 (09:38→20:42)
[2021-09-06] MEDS: Metoprolol XL (24 HR) Succ 25 MG TAB.ER.24H PO SCH (09:38)
[2021-09-06] MEDS: Cyanocobalamin (B-12) 1,000 MCG TABLET PO SCH (09:38)
[2021-09-06] MEDS: Spironolactone 25 MG TABLET PO SCH (12:58)
[2021-09-06] MEDS: lisinopriL 5 MG TABLET PO SCH (12:58)
[2021-09-06 14:22] LABS: Hematocrit 22.5 % (37.5-50.1); Hemoglobin 7.3 g/dL (12.9-16.9)
[2021-09-07 03:01] LABS: Basophils % 0.3 %; Eosinophils % 0.8 %; Hematocrit 21.9 % (37.5-50.1); Immature Granulocytes % 1.1 % (0-4); Lymphocytes # 0.6 K/mcL (0.6-4.6); Lymphocytes % 15.8 %; Mean Corpuscular Hemoglobin 31.5 pg (28.0-33.3); Mean Corpuscular Volume 98.6 fL (83.0-100.0); Mean Platelet Volume 11.6 fL (9.4-12.4); Monocytes # 0.3 K/mcL (0.0-1.3); Monocytes % 8.2 %; Neutrophils # 2.6 K/mcL (1.6-8.9); Red Blood Count 2.22 M/mcL (4.19-5.50); Red Cell Distribution Width 19.4 % (11.5-14.5); Segmented Neutrophils % 73.8 %; White Blood Count 3.5 K/mcL (4.3-11.1)
[2021-09-07 03:02] LABS: Platelet Count 40 K/mcL (140-400)
[2021-09-07 03:27] LABS: Calcium 8.6 mg/dL (8.6-10.3); Potassium 3.9 mEq/L (3.5-5.1)
[2021-09-07] MEDS: Ipratropium/Albuterol Neb 3 ML IH SCH ×2 (03:57→08:05)
[2021-09-07] MEDS: Pantoprazole 40 MG VIAL IVP SCH (05:51)
[2021-09-07] MEDS: Insulin LISPRO 300 UNITS/3 ML VIAL SUBQ SCH ×2 (09:08→11:56)
[2021-09-07] MEDS: lisinopriL 5 MG TABLET PO SCH (09:12)
[2021-09-07] MEDS: Cyanocobalamin (B-12) 1,000 MCG TABLET PO SCH (09:13)
[2021-09-07] MEDS: Metoprolol XL (24 HR) Succ 25 MG TAB.ER.24H PO SCH (09:13)
[2021-09-07] MEDS: Spironolactone 25 MG TABLET PO SCH (09:14)
[2021-09-07] MEDS: *HR* Amiodarone 200 MG TABLET PO SCH (09:14)
[2021-09-07 12:11] VITALS: BP 113/49; PULSE 67; TEMP 98.4
[2021-09-07 12:43] VITALS: O2SAT 99
== END 2021-09-07 15:09 | disposition home or self-care (01) | DRG 808 ==
LOC: 3ANU 17:35 → EMEROOARM 17:35 → SUATTDRO 23:41 → 3BNU 23:51 → 3ANU 23:54
PROVIDERS: ADMIT Internal Medicine; ATTEND Family Medicine

== ENCOUNTER 2021-11-23 10:35 | Observation (INO) ==
[2021-11-23 11:48] LABS: Albumin 3.6 g/dL (3.5-5.7); Albumin/Globulin Ratio 1.4 (1.1-2.2); Bilirubin,Direct 0.3 mg/dL (0.0-0.2); Bilirubin,Indirect 0.8 mg/dL (0.0-1.0); Bilirubin,Total 1.1 mg/dL (0.3-1.0); Calcium 9.6 mg/dL (8.6-10.3); Globulin 2.5 g/dL (2.4-3.5); Potassium 4.7 mEq/L (3.5-5.1); Total Protein 6.1 g/dL (6.4-8.9)
[2021-11-23 12:19] LABS: Troponin I 0.04 ng/mL (< 0.04)
[2021-11-23] MEDS ORDERED: 0.9 % Sodium Chloride 250 ML ONE (13:02)
[2021-11-23] MEDS ORDERED: 0.9 % Sodium Chloride 500 ML IVC ONE (13:12)
[2021-11-23] MEDS ORDERED: Ondansetron ODT 4 MG TAB.RAPDIS SL PRN (15:20)
[2021-11-23] MEDS ORDERED: Naloxone 0.4 MG/ML INJ IVP PRN (15:20)
[2021-11-23] MEDS ORDERED: Ipratropium/Albuterol Neb 3 ML IH PRN (15:27)
[2021-11-23 22:57] LABS: Hemoglobin 6.7 g/dL (12.9-16.9)
[2021-11-24] MEDS ORDERED: Benzonatate 100 MG CAPSULE PO PRN (00:36)
[2021-11-24 02:20] LABS: Immature Granulocytes % 0.6 % (0-4)
[2021-11-24 02:22] LABS: Hematocrit 19.8 % (37.5-50.1); Hemoglobin 6.7 g/dL (12.9-16.9); Lymphocytes % 10.8 %; Mean Corpuscular HGB Conc 33.8 g/dL (31.6-35.5); Mean Corpuscular Hemoglobin 33.5 pg (28.0-33.3); Mean Platelet Volume 11.2 fL (9.4-12.4); Monocytes % 10.8 %; Neutrophils # 2.5 K/mcL (1.6-8.9); Segmented Neutrophils % 77.8 %; White Blood Count 3.2 K/mcL (4.3-11.1)
[2021-11-24 02:29] LABS: Albumin 3.5 g/dL (3.5-5.7); Albumin/Globulin Ratio 1.3 (1.1-2.2); Bilirubin,Total 1.7 mg/dL (0.3-1.0); Calcium 9.3 mg/dL (8.6-10.3); Globulin 2.6 g/dL (2.4-3.5); Potassium 4.8 mEq/L (3.5-5.1); Total Protein 6.1 g/dL (6.4-8.9)
[2021-11-24 02:46] LABS: Lymphocytes # 0.4 K/mcL (0.6-4.6); Monocytes # 0.4 K/mcL (0.0-1.3); Platelet Count 78 K/mcL (140-400)
[2021-11-24 03:10] LABS: Anisocytosis 1+ (Not Present); Microcytosis Present (Not Present); Platelet Estimate Decreased (Normal)
[2021-11-24 05:21] LABS: Bacteria,Urine Moderate per hpf (None-Few); Bilirubin,Urine Negative (Negative); Blood,Urine Negative (Negative); Clarity,Urine Clear (Clear); Color,Urine Light-Yellow (Yellow); Glucose,Urine (UA) Normal (Normal); Ketones,Urine Negative (Negative); Leukocyte Esterase,Urine Moderate (Negative); Mucus,Urine Few per lpf (None-Few); Nitrite,Urine Negative (Negative); PH,Urine 5.5 pH Units (5.0-8.0); Protein,Urine Trace mg/dL (Neg-Trace); RBC,Urine 0-3 per hpf (0-3); Specific Gravity,Urine 1.016 (1.010-1.025); Squamous Epithelial Cell,Urine Few per hpf (None-Few); Urobilinogen,Urine Normal (Normal)
[2021-11-24 06:59] LABS: Hematocrit 23.2 % (37.5-50.1); Hemoglobin 7.9 g/dL (12.9-16.9)
[2021-11-24] MEDS ORDERED: Tiotropium 10 INH DOSE IH ONE (08:11)
[2021-11-24] MEDS ORDERED: *HR* Acetylcysteine 20% 600 MG/3 ML ORAL SYRINGE PO SCH (09:00)
[2021-11-24] MEDS ORDERED: Aspirin Enteric Coated 81 MG Tablet PO SCH (09:00)
[2021-11-24] MEDS ORDERED: *HR* Amiodarone 200 MG TABLET PO SCH (09:00)
[2021-11-24] MEDS ORDERED: Metoprolol XL (24 HR) Succ 25 MG TAB.ER.24H PO SCH (09:00)
[2021-11-24] MEDS ORDERED: Spironolactone 12.5 MG TABLET PO SCH (09:00)
[2021-11-24] MEDS ORDERED: Isosorbide MONOnitrate (24 HR) 30 MG TAB.ER.24H PO SCH (09:00)
[2021-11-24] MEDS ORDERED: Cyanocobalamin (B-12) 1,000 MCG TABLET PO SCH (09:00)
[2021-11-24] MEDS ORDERED: Furosemide 40 MG TABLET PO SCH (09:00)
[2021-11-24] MEDS ORDERED: lisinopriL 5 MG TABLET PO SCH (09:00)
[2021-11-24] MEDS ORDERED: Iron Polysaccharide Complex 150 MG CAPSULE PO SCH (09:00)
[2021-11-24] MEDS ORDERED: Budesonide/Formoterol 160/4.5 1 PUFF INH IH SCH (10:00)
[2021-11-24] MEDS ORDERED: Tiotropium 10 INH DOSE IH SCH (10:00)
[2021-11-24 11:39] VITALS: BP 109/48; TEMP 98.9; O2SAT 91
[2021-11-24 12:56] VITALS: PULSE 77
[2021-11-25] MEDS ORDERED: Tiotropium 10 INH DOSE IH SCH (10:00)
== END 2021-11-24 14:45 | disposition home or self-care (01) ==
LOC: EMEROOARM 10:35 → 2NNU 10:35
PROVIDERS: ADMIT Internal Medicine; ATTEND Internal Medicine

== ENCOUNTER 2022-05-10 14:48 | Inpatient (IN) ==
[2022-05-10 15:22] LABS: Red Cell Distribution Width 24.8 % (11.5-14.5)
[2022-05-10 15:24] LABS: Basophils % 0.5 %; Eosinophils % 1.5 %; Immature Granulocytes % 5.1 % (0-4); Immature Platelets 6.4 % (1.1-6.1); Lymphocytes # 0.4 K/mcL (0.6-4.6); Mean Corpuscular HGB Conc 33.1 g/dL (31.6-35.5); Mean Corpuscular Hemoglobin 37.2 pg (28.0-33.3); Mean Corpuscular Volume 112.4 fL (83.0-100.0); Mean Platelet Volume 11.5 fL (9.4-12.4); Monocytes # 0.2 K/mcL (0.0-1.3); Monocytes % 11.3 %; Neutrophils # 1.2 K/mcL (1.6-8.9); Red Blood Count 1.29 M/mcL (4.19-5.50); Segmented Neutrophils % 61.6 %
[2022-05-10 15:27] LABS: Platelet Count 72 K/mcL (140-400)
[2022-05-10 15:30] LABS: Hematocrit 14.5 % (37.5-50.1); Hemoglobin 4.8 g/dL (12.9-16.9)
[2022-05-10 15:56] LABS: Albumin 3.8 g/dL (3.5-5.7); Albumin/Globulin Ratio 1.5 (1.1-2.2); Bilirubin,Direct 0.4 mg/dL (0.0-0.2); Bilirubin,Indirect 0.6 mg/dL (0.0-1.0); Calcium 9.6 mg/dL (8.6-10.3); Globulin 2.6 g/dL (2.4-3.5); Magnesium 2.2 mg/dL (1.6-2.6); Potassium 5.2 mEq/L (3.5-5.1); Total Protein 6.4 g/dL (6.4-8.9); Troponin I 0.04 ng/mL (< 0.04)
[2022-05-10] MEDS ORDERED: 0.9 % Sodium Chloride 500 ML IVC ONE ×2 (16:00→22:39)
[2022-05-10] MEDS ORDERED: Cefepime HCl 2,000 MG in 0.9 % Sodium Chloride 10 ML IVP ONE (16:03)
[2022-05-10 16:04] LABS: Anisocytosis 2+ (Not Present); Macrocytosis Present (Not Present); Platelet Estimate Decreased (Normal); Toxic Granulation Present (Not Present)
[2022-05-10] MEDS ORDERED: Vancomycin 1,250 MG/262.5 ML IV.SOLN IVPB ONE (16:15)
[2022-05-10 16:17] LABS: Bacteria,Urine Moderate per hpf (None-Few); Bilirubin,Urine Negative (Negative); Blood,Urine Negative (Negative); Clarity,Urine Clear (Clear); Color,Urine Light-Yellow (Yellow); Glucose,Urine (UA) Normal (Normal); Hyaline Casts,Urine Few per lpf (None Seen); Ketones,Urine Negative (Negative); Leukocyte Esterase,Urine Large (Negative); Mucus,Urine Few per lpf (None-Few); Nitrite,Urine Negative (Negative); PH,Urine 5.5 pH Units (5.0-8.0); Protein,Urine Negative (Neg-Trace); RBC,Urine 0-3 per hpf (0-3); Specific Gravity,Urine 1.012 (1.010-1.025); Squamous Epithelial Cell,Urine Few per hpf (None-Few); Urobilinogen,Urine Normal (Normal); WBC,Urine 15-30 per hpf (0-3)
[2022-05-10] MEDS ORDERED: 0.9 % Sodium Chloride 250 ML IVC ONE (16:50)
[2022-05-10 17:22] LABS: Adenovirus Not Detected (Not Detect); Bordetella Pertussis Not Detected (Not Detect); Chlamydophila pneumoniae Not Detected (Not Detect); Coronavirus 229E Not Detected (Not Detect); Coronavirus HKU1 Not Detected (Not Detect); Coronavirus NL63 Not Detected (Not Detect); Coronavirus OC43 Not Detected (Not Detect); Human Metapneumovirus Not Detected (Not Detect); Human Rhinovirus/Enterovirus Not Detected (Not Detect); Influenza A Subtype 2009 H1 Not Detected (Not Detect); Influenza B Not Detected (Not Detect); Mycoplasma pneumoniae Not Detected (Not Detect); Parainfluenza Virus 1 Not Detected (Not Detect); Parainfluenza Virus 2 Not Detected (Not Detect); Parainfluenza Virus 3 Not Detected (Not Detect); Parainfluenza Virus 4 Not Detected (Not Detect); Respiratory Syncytial Virus Not Detected (Not Detect); SARS-CoV-2 Not Detected (Not Detect)
[2022-05-10] MEDS ORDERED: Naloxone 0.4 MG/ML INJ IVP PRN (18:31)
[2022-05-10] MEDS ORDERED: Ondansetron 4 MG/2 ML VIAL IVP PRN (20:16)
[2022-05-10] MEDS ORDERED: Melatonin 3 MG TABLET PO PRN (20:16)
[2022-05-10] MEDS ORDERED: D5% in Water 1,000 ML IVC PRN (21:10)
[2022-05-10] MEDS ORDERED: *HR* Dextrose 50 % in Water (Syg) 50 ML SYRINGE IVP PRN (21:10)
[2022-05-10] MEDS ORDERED: Dextrose Gel 15 GM/37.5 ML TUBE PO PRN ×2 (21:10)
[2022-05-10 21:49] LABS: Potassium 5.5 mEq/L (3.5-5.1)
[2022-05-10 21:51] LABS: Troponin I 0.04 ng/mL (< 0.04)
[2022-05-10] MEDS: Budesonide/Formoterol 160/4.5 1 PUFF INH IH SCH (22:18)
[2022-05-10] MEDS: Fluticasone Propionate Nasal 50 MCG/SPRAY BOTTLE NS SCH (22:49)
[2022-05-10] MEDS ORDERED: *HR* Dextrose 50 % in Water (Syg) 50 ML SYRINGE IVP ONE (23:32)
[2022-05-10] MEDS ORDERED: Insulin Human Regular 10 UNIT in 0.9 % Sodium Chloride 10 ML IV ONE (23:32)
[2022-05-11] MEDS ORDERED: 0.9 % Sodium Chloride 250 ML ONE ×3 (00:23→12:15)
[2022-05-11] MEDS: SODIUM ZIRCONIUM CYCLOSILICATE 5 GM POWD.PACK PO SCH ×2 (00:32→08:17)
[2022-05-11 01:13] LABS: Immature Granulocytes % 1.7 % (0-4)
[2022-05-11 01:15] LABS: Basophils % 0.6 %; Eosinophils % 1.1 %; Immature Platelets 6.4 % (1.1-6.1); Lymphocytes # 0.5 K/mcL (0.6-4.6); Lymphocytes % 26.1 %; Mean Corpuscular HGB Conc 31.9 g/dL (31.6-35.5); Mean Corpuscular Hemoglobin 36.1 pg (28.0-33.3); Mean Corpuscular Volume 113.4 fL (83.0-100.0); Mean Platelet Volume 10.8 fL (9.4-12.4); Monocytes # 0.1 K/mcL (0.0-1.3); Monocytes % 3.9 %; Neutrophils # 1.2 K/mcL (1.6-8.9); Red Blood Count 1.19 M/mcL (4.19-5.50); Red Cell Distribution Width 24.9 % (11.5-14.5); Segmented Neutrophils % 66.6 %; White Blood Count 1.8 K/mcL (4.3-11.1)
[2022-05-11 01:20] LABS: INR 1.4; Prothrombin Time 15.1 Seconds (9.4-12.1)
[2022-05-11 01:22] LABS: Hematocrit 13.5 % (37.5-50.1); Hemoglobin 4.3 g/dL (12.9-16.9); Platelet Count 64 K/mcL (140-400)
[2022-05-11 01:32] LABS: Calcium 8.9 mg/dL (8.6-10.3); Magnesium 2.1 mg/dL (1.6-2.6); Phosphorous 4.9 mg/dL (2.7-4.5); Potassium 4.6 mEq/L (3.5-5.1)
[2022-05-11 01:34] LABS: Troponin I 0.03 ng/mL (< 0.04)
[2022-05-11 01:39] LABS: Anisocytosis 2+ (Not Present); Platelet Estimate Normal (Normal)
[2022-05-11 01:40] LABS: Basophilic Stippling 1+ (Not Present)
[2022-05-11] MEDS: Ipratropium/Albuterol Neb 3 ML IH PRN ×3 (02:25→20:12)
[2022-05-11] MEDS: 0.9 % Sodium Chloride 1,000 ML IVC SCH ×4 (04:30→19:45)
[2022-05-11] MEDS: Meropenem 500 MG in Water for inj. (sterile) 10 ML IVP SCH ×2 (05:06→17:29)
[2022-05-11] MEDS: Acetaminophen 325 MG TABLET PO PRN ×2 (05:06→10:52)
[2022-05-11] MEDS: Budesonide/Formoterol 160/4.5 1 PUFF INH IH SCH ×2 (07:38→20:12)
[2022-05-11] MEDS ORDERED: Tiotropium 10 INH DOSE IH ONE (07:42)
[2022-05-11] MEDS: Tiotropium 10 INH DOSE IH SCH (07:43)
[2022-05-11] MEDS: *HR* Amiodarone 200 MG TABLET PO SCH ×2 (08:17→20:03)
[2022-05-11] MEDS: Iron Polysaccharide Complex 150 MG CAPSULE PO SCH (08:17)
[2022-05-11] MEDS: Nicotine 14 MG PATCH.TD24 TD SCH (08:18)
[2022-05-11] MEDS: Fluticasone Propionate Nasal 50 MCG/SPRAY BOTTLE NS SCH (08:18)
[2022-05-11] MEDS: *HR* Acetylcysteine 20% 600 MG/3 ML ORAL SYRINGE PO SCH (08:18)
[2022-05-11] MEDS: Isosorbide MONOnitrate (24 HR) 30 MG TAB.ER.24H PO SCH (08:49)
[2022-05-11 10:30] LABS: Eosinophils % 1.3 %
[2022-05-11 10:32] LABS: Hematocrit 19.6 % (37.5-50.1); Hemoglobin 6.6 g/dL (12.9-16.9); Immature Granulocytes % 1.6 % (0-4); Immature Platelets 6.1 % (1.1-6.1); Lymphocytes # 0.4 K/mcL (0.6-4.6); Lymphocytes % 13.5 %; Mean Corpuscular HGB Conc 33.7 g/dL (31.6-35.5); Mean Corpuscular Hemoglobin 35.3 pg (28.0-33.3); Mean Corpuscular Volume 104.8 fL (83.0-100.0); Mean Platelet Volume 11.3 fL (9.4-12.4); Monocytes # 0.4 K/mcL (0.0-1.3); Monocytes % 11.9 %; Neutrophils # 2.3 K/mcL (1.6-8.9); Red Blood Count 1.87 M/mcL (4.19-5.50); Segmented Neutrophils % 71.7 %; White Blood Count 3.2 K/mcL (4.3-11.1)
[2022-05-11 10:50] LABS: Platelet Count 69 K/mcL (140-400)
[2022-05-11 10:53] LABS: Anisocytosis 2+ (Not Present); Platelet Estimate Decreased (Normal)
[2022-05-11 13:53] LABS: Folate > 22.3 ng/mL (3.0-16.0); Vitamin B12 831 pg/mL (250-1100)
[2022-05-11 17:24] LABS: Basophils % 0.2 %; Mean Corpuscular Volume 102.2 fL (83.0-100.0)
[2022-05-11 17:26] LABS: Eosinophils % 0.6 %; Hematocrit 23.4 % (37.5-50.1); Hemoglobin 7.8 g/dL (12.9-16.9); Immature Granulocytes % 1.7 % (0-4); Immature Platelets 7.9 % (1.1-6.1); Lymphocytes # 0.4 K/mcL (0.6-4.6); Lymphocytes % 7.4 %; Mean Corpuscular HGB Conc 33.3 g/dL (31.6-35.5); Mean Corpuscular Hemoglobin 34.1 pg (28.0-33.3); Mean Platelet Volume 11.2 fL (9.4-12.4); Monocytes # 0.4 K/mcL (0.0-1.3); Monocytes % 7.4 %; Neutrophils # 4.5 K/mcL (1.6-8.9); Red Blood Count 2.29 M/mcL (4.19-5.50); Red Cell Distribution Width 22.8 % (11.5-14.5); Segmented Neutrophils % 82.7 %; White Blood Count 5.4 K/mcL (4.3-11.1)
[2022-05-11 17:31] LABS: Platelet Count 68 K/mcL (140-400)
[2022-05-11 17:54] LABS: Thyroid Stimulating Hormone 4.438 mcIU/mL (0.340-5.600)
[2022-05-11 18:04] LABS: INR 1.3; Prothrombin Time 14.1 Seconds (9.4-12.1)
[2022-05-11 18:06] LABS: Activated Partial Thrombo Time 29.8 Seconds (26.0-36.0)
[2022-05-12] MEDS: Ipratropium/Albuterol Neb 3 ML IH PRN ×2 (04:08→14:55)
[2022-05-12] MEDS: 0.9 % Sodium Chloride 1,000 ML IVC SCH ×2 (04:57→18:50)
[2022-05-12] MEDS: Meropenem 500 MG in Water for inj. (sterile) 10 ML IVP SCH (04:58)
[2022-05-12] MEDS: Acetaminophen 325 MG TABLET PO PRN ×2 (05:00→11:06)
[2022-05-12 05:10] LABS: Calcium 8.8 mg/dL (8.6-10.3); Potassium 4.4 mEq/L (3.5-5.1)
[2022-05-12 08:05] LABS: Basophils % 0.2 %
[2022-05-12 08:07] LABS: Hematocrit 20.5 % (37.5-50.1); Hemoglobin 6.9 g/dL (12.9-16.9); Immature Granulocytes % 0.8 % (0-4); Lymphocytes # 0.4 K/mcL (0.6-4.6); Lymphocytes % 7.4 %; Mean Corpuscular HGB Conc 33.7 g/dL (31.6-35.5); Mean Corpuscular Hemoglobin 34.8 pg (28.0-33.3); Mean Corpuscular Volume 103.5 fL (83.0-100.0); Monocytes # 0.7 K/mcL (0.0-1.3); Monocytes % 11.3 %; Red Blood Count 1.98 M/mcL (4.19-5.50); Red Cell Distribution Width 23.2 % (11.5-14.5); Segmented Neutrophils % 80.3 %; White Blood Count 5.9 K/mcL (4.3-11.1)
[2022-05-12] MEDS: *HR* Acetylcysteine 20% 600 MG/3 ML ORAL SYRINGE PO SCH (08:11)
[2022-05-12] MEDS: Nicotine 14 MG PATCH.TD24 TD SCH (08:11)
[2022-05-12] MEDS: Iron Polysaccharide Complex 150 MG CAPSULE PO SCH (08:11)
[2022-05-12] MEDS: *HR* Amiodarone 200 MG TABLET PO SCH (08:14)
[2022-05-12 08:17] LABS: Neutrophils # 4.7 K/mcL (1.6-8.9); Platelet Count 64 K/mcL (140-400)
[2022-05-12] MEDS: Tiotropium 10 INH DOSE IH SCH (08:17)
[2022-05-12 08:18] LABS: INR 1.6; Prothrombin Time 17.6 Seconds (9.4-12.1)
[2022-05-12] MEDS: Budesonide/Formoterol 160/4.5 1 PUFF INH IH SCH ×2 (08:18→20:12)
[2022-05-12 08:20] LABS: Activated Partial Thrombo Time 32.2 Seconds (26.0-36.0)
[2022-05-12] MEDS: Fluticasone Propionate Nasal 50 MCG/SPRAY BOTTLE NS SCH (08:21)
[2022-05-12 08:57] LABS: Anisocytosis 1+ (Not Present); Hypochromasia Present (Not Present); Poikilocytosis 1+ (Not Present)
[2022-05-12 08:58] LABS: Large Platelets Present (Not Present); Platelet Estimate Decreased (Normal)
[2022-05-12] MEDS: Isosorbide MONOnitrate (24 HR) 30 MG TAB.ER.24H PO SCH (10:12)
[2022-05-12] MEDS ORDERED: Lactobacillus 1 EACH CAP.SPRINK PO SCH (13:00)
[2022-05-12] MEDS ORDERED: 0.9 % Sodium Chloride 250 ML IVC SCH (14:30)
[2022-05-12 14:36] LABS: Calcium 8.6 mg/dL (8.6-10.3); Potassium 4.1 mEq/L (3.5-5.1)
[2022-05-12] MEDS ORDERED: *HR* LORazepam Oral Conc 2 MG/ML PO PRN ×2 (15:17→18:59)
[2022-05-12] MEDS ORDERED: Sennosides/Docusate Sodium TABLET PO PRN (15:19)
[2022-05-12 15:31] LABS: VBG Ionized Calcium 1.25 mmol/L (1.15-1.35)
[2022-05-12] MEDS ORDERED: cefTRIAXone 1,000 MG in 0.9 % Sodium Chloride Mini Bag 100 ML IVPB SCH (18:00)
[2022-05-12] MEDS: SODIUM ZIRCONIUM CYCLOSILICATE 5 GM POWD.PACK PO SCH (18:50)
[2022-05-12] MEDS ORDERED: Acetaminophen 325 MG TABLET PO PRN (18:59)
[2022-05-12] MEDS ORDERED: Ondansetron 4 MG/2 ML VIAL IVP PRN (18:59)
[2022-05-12] MEDS ORDERED: Melatonin 3 MG TABLET PO PRN (18:59)
[2022-05-12] MEDS ORDERED: Acetylcysteine 10% 2 ML INHSOL IH SCH (21:00)
[2022-05-13] MEDS ORDERED: Tiotropium 10 INH DOSE IH ONE (07:48)
[2022-05-13] MEDS: Tiotropium 10 INH DOSE IH SCH (07:57)
[2022-05-13] MEDS: Budesonide/Formoterol 160/4.5 1 PUFF INH IH SCH ×2 (07:57→20:09)
[2022-05-13] MEDS: Fluticasone Propionate Nasal 50 MCG/SPRAY BOTTLE NS SCH (09:12)
[2022-05-13] MEDS: Nicotine 14 MG PATCH.TD24 TD SCH (09:12)
[2022-05-13 09:35] LABS: Hemoglobin 7.8 g/dL (12.9-16.9)
[2022-05-13] MEDS ORDERED: Morphine Sulfate Oral CONC 10 MG/0.5 ML ORAL.SYG SL PRN (14:31)
[2022-05-14 01:04] LABS: Hematocrit RBC Folate 23.4 %
[2022-05-14 04:04] VITALS: TEMP 97.9
[2022-05-14 04:27] LABS: Hematocrit 23.6 % (37.5-50.1); Hemoglobin 7.7 g/dL (12.9-16.9)
[2022-05-14] MEDS: Budesonide/Formoterol 160/4.5 1 PUFF INH IH SCH (07:37)
[2022-05-14] MEDS: Tiotropium 10 INH DOSE IH SCH (07:37)
[2022-05-14] MEDS: Nicotine 14 MG PATCH.TD24 TD SCH (08:09)
[2022-05-14] MEDS: Fluticasone Propionate Nasal 50 MCG/SPRAY BOTTLE NS SCH (08:10)
[2022-05-14 10:31] VITALS: BP 96/58; PULSE 69; O2SAT 96
[2022-05-15 04:45] LABS: Thrombin Time 15.3 sec (14.7-19.5)
== END 2022-05-14 14:05 | disposition hospice, home (50) | DRG 811 ==
LOC: EMEROOARM 14:48 → 2NNU 14:48 → SUATTDRO 18:10 → 2NNU 19:46 → 2ANU 05-13 19:17
PROVIDERS: ADMIT Internal Medicine; ATTEND Internal Medicine